=== PATIENT | male | born 1965 | race Caucasian/White ===

== ENCOUNTER 2020-10-08 11:39 | Inpatient (IN) | payer OTHER ==
[~2020-10-08] VITALS: Ht 182.9 cm; Wt 91.2 kg
[2020-10-08 15:37] LABS: BASOPHILS # (AUTO) 0.1 X10'3 (0-0.2); BASOPHILS % (AUTO) 0.5 % (0-1); EOSINOPHILS # (AUTO) 0.3 X10'3 (0-0.9); HEMATOCRIT 46.7 % (42.0-52.0); HEMOGLOBIN 16.1 g/dl (14.0-17.9); LYMPHOCYTES # (AUTO) 2.7 X10'3 (1.1-4.8); LYMPHOCYTES % (AUTO) 19.8 % (21-51); MEAN CORPUSCULAR HEMOGLOBIN 31.4 PG (27.0-31.0); MEAN CORPUSCULAR HGB CONC 34.4 g/dL (33.0-36.5); MEAN CORPUSCULAR VOLUME 91.3 FL (78-98); MONOCYTES # (AUTO) 0.8 X10'3 (0-0.9); MONOCYTES % (AUTO) 6.2 % (2-12); NEUTROPHILS # (AUTO) 9.8 X10'3 (1.8-7.7); NEUTROPHILS % (AUTO) 71.5 % (42-75); PLATELET COUNT 212 X10'3 (140-440); RED BLOOD COUNT 5.11 X10'6 (4.70-6.10); RED CELL DISTRIBUTION WIDTH 12.8 % (11.5-14.5); WHITE BLOOD COUNT 13.7 X10'3 (4.5-11.0)
[2020-10-08 15:46] LABS: ALANINE AMINOTRANSFERASE 55 U/L (12-78); ALBUMIN 3.8 G/DL (3.4-5.0); ALBUMIN/GLOBULIN RATIO 0.9 (1.1-1.5); ALKALINE PHOSPHATASE 70 IU/L (46-116); ANION GAP 9 (8-16); ASPARTATE AMINO TRANSFERASE 20 U/L (10-37); BILIRUBIN,TOTAL 0.6 MG/DL (0.1-1.0); BLOOD UREA NITROGEN 13 MG/DL (7-18); BUN/CREATININE RATIO 15.9 (5.4-32.0); C-REACTIVE PROTEIN 5.66 MG/DL (0.0-0.5); CALCIUM 9.4 MG/DL (8.5-10.1); CHLORIDE 95 MMOL/L (99-107); CREATININE 0.82 MG/DL (0.60-1.10); GLUCOSE 416 MG/DL (70-104); POTASSIUM 4.4 MMOL/L (3.5-5.1); SODIUM 131 MMOL/L (135-145); TOTAL CARBON DIOXIDE 26.9 MMOL/L (24-32); TOTAL PROTEIN 7.9 G/DL (6.4-8.2); eGFR > 90 ML/MIN
[2020-10-08] MEDS ORDERED: levoFLOXACIN-Levaquin 250mg/D5 50 ML IV ONE (16:15)
[2020-10-08] MEDS ORDERED: clindamycin 600mg/D5W 50ml 50 ML IV ONE (16:15)
--- NOTE | 2020-10-08 16:20 | NUR ---
PT DEMANDING TO LEAVE THE HOSPITAL TO GO TO HIS CAR OR HE WILL NOT STAY. WE OFFERED PT A PHONE TO MAKE CALLS AND HE IS REFUSING. SCOT BOSWELL IS TALKING WITH PT ALONG WITH AB ROBINS. PT IS REFUSING TO STAY IF HE CAN NOT GO TO HIS CAR.
--- NOTE | 2020-10-08 16:22 | NUR ---
PT TO BE ESCORTED BY SECURITY TO HIS CAR TO HELP LOCK IT UP. PT REPORTS THAT HE HAS "POT AND A PIPE" THAT NEEDS TO BE LOCKED UP IN HIS CAR. SECURITY ON STANDBY AT PT ROOM.
[2020-10-08] MEDS ORDERED: nicotine 21mg patch - 24 hr TD ONE ×2 (16:25→22:05)
--- NOTE | 2020-10-08 16:27 | NUR ---
PT OUT OF THE ED IN A WHEELCHAIR ESCORTED BY SECURITY TO LOCK UP HIS CAR.
[2020-10-08] MEDS ORDERED: normal saline 1000ML IV soln IVB ONE (16:35)
[2020-10-08] MEDS ORDERED: HYDROcodone/acetaminophen 5mg/325mg tablet PO ONE (18:50)
[2020-10-08] MEDS ORDERED: HUM10VIA (19:03)
[2020-10-08] MEDS ORDERED: GADOTERATE MEGLUMINE 7.5 MMOL/15 ML VIAL IV ONE (19:06)
[2020-10-08] MEDS ORDERED: acetaminophen 325mg tablet PO PRN ×2 (20:05)
[2020-10-08] MEDS ORDERED: HYDROcodone/acetaminophen 5mg/325mg tablet PO PRN (20:05)
[2020-10-08] MEDS ORDERED: dextrose ORAL solution 15 GM/59 ML bottle PO PRN ×2 (20:05)
[2020-10-08] MEDS ORDERED: dextrose 50%-water 50ml dispensing syringe IV PRN ×2 (20:05)
[2020-10-08] MEDS ORDERED: magnesium 2GM in 50ml NS 50 ML IV PRN (20:05)
[2020-10-08] MEDS ORDERED: morphine 2 MG/ML inj. syringe IV PRN (20:05)
[2020-10-08] MEDS ORDERED: mag hydrox/Alum hydrox/simeth 30ml oral suspension PO PRN (20:05)
[2020-10-08] MEDS ORDERED: potassium Cl 20 mEq SR tablet PO PRN ×2 (20:05)
[2020-10-08] MEDS ORDERED: vancomycin/NS 1 GM ADD-VANTAGE 250 ML IV ONE (20:05)
[2020-10-08] MEDS ORDERED: ondansetron/PF 4mg/2ml inj IV PRN (20:05)
[2020-10-08] MEDS ORDERED: potassium Cl 40MEQ/1/2NS 520ml 520 ML IV PRN ×2 (20:05)
[2020-10-08] MEDS ORDERED: magnesium hydroxide 30ml (MOM) UD suspension PO PRN (20:05)
[2020-10-08] MEDS ORDERED: MESSAGE TO PHARMACY PO ONE (20:05)
[2020-10-08] MEDS ORDERED: magnesium 4gm in 100ml NS 100 ML IV PRN (20:05)
[2020-10-08] MEDS ORDERED: glucagon, human recombinant 1mg kit SUBCUT PRN (20:05)
[2020-10-08 21:15] LABS: HEMOGLOBIN A1C 10.7 % (4.5-6.2)
--- NOTE | 2020-10-08 21:25 | NUR ---
I have received report from Marry LEE and had the opportunity to ask questions and assume patient care.
[2020-10-08 22:00] VITALS: BP 138/87
[2020-10-08] MEDS ORDERED: LORazepam 2 mg/ml vial IV PRN (22:05)
[2020-10-08] MEDS ORDERED: haloperidol lactate 5mg/ml inj IM PRN (22:05)
[2020-10-08] MEDS ORDERED: haloperidol 5mg tablet PO PRN (22:05)
[2020-10-08] MEDS: normal saline 1000ml 1,000 ML IV SCH (22:10)
[2020-10-08] MEDS: insulin glargine (Lantus) pen - multi-dose SQ SCH (22:15)
[2020-10-08] MEDS: insulin Lispro (HumaLOG) vial - multi-dose SQ SCH (22:49)
[2020-10-08] MEDS: HYDROcodone/acetaminophen 10/325mg tab PO PRN (22:56)
[2020-10-09] VITALS: BP 106/69
[2020-10-09] MEDS: normal saline 1000ml 1,000 ML IV SCH ×2 (02:52→17:07)
[2020-10-09] MEDS: vancomycin/NS 1 GM ADD-VANTAGE 250 ML IV SCH ×3 (04:36→19:46)
[2020-10-09] MEDS: HYDROcodone/acetaminophen 10/325mg tab PO PRN ×5 (04:37→23:28)
--- NOTE | 2020-10-09 06:33 | NUR ---
Problems reprioritized. Patient report given, questions answered & plan of care reviewed with Winifred LEE.
--- NOTE | 2020-10-09 06:37 | NUR ---
Patient in room [facility]. I have received report from Celia LEE and had the opportunity to ask questions and assume patient care.
[2020-10-09] MEDS: thiamine 100mg tablet PO SCH (07:55)
[2020-10-09] MEDS: folic acid 1mg tablet PO SCH (07:55)
[2020-10-09] MEDS: piperacillin/tazo 4.5gm/100ml 100 ML IV SCH ×2 (07:55→21:22)
[2020-10-09] MEDS: multivitamins, therapeutics tablet PO SCH (07:55)
[2020-10-09 08:00] VITALS: BP 121/78
[2020-10-09] MEDS: K and/or MAG REPLACEMENT MC SCH ×2 (08:00→19:42)
[2020-10-09 08:24] LABS: BASOPHILS % (AUTO) 0.3 % (0-1); EOSINOPHILS # (AUTO) 0.3 X10'3 (0-0.9); EOSINOPHILS % (AUTO) 3.6 % (0-6); HEMATOCRIT 41.4 % (42.0-52.0); LYMPHOCYTES # (AUTO) 2.5 X10'3 (1.1-4.8); LYMPHOCYTES % (AUTO) 33.5 % (21-51); MEAN CORPUSCULAR HEMOGLOBIN 31.2 PG (27.0-31.0); MEAN CORPUSCULAR VOLUME 91.8 FL (78-98); MEAN PLATELET VOLUME 9.1 FL (7.4-10.4); MONOCYTES # (AUTO) 0.5 X10'3 (0-0.9); MONOCYTES % (AUTO) 6.3 % (2-12); NEUTROPHILS # (AUTO) 4.3 X10'3 (1.8-7.7); NEUTROPHILS % (AUTO) 56.3 % (42-75); PLATELET COUNT 161 X10'3 (140-440); RED CELL DISTRIBUTION WIDTH 12.8 % (11.5-14.5); WHITE BLOOD COUNT 7.6 X10'3 (4.5-11.0)
[2020-10-09 08:53] LABS: ALANINE AMINOTRANSFERASE 43 U/L (12-78); ALBUMIN 2.9 G/DL (3.4-5.0); ALBUMIN/GLOBULIN RATIO 0.9 (1.1-1.5); ALKALINE PHOSPHATASE 48 IU/L (46-116); AMYLASE 28 U/L (25-115); ANION GAP 7 (8-16); ASPARTATE AMINO TRANSFERASE 19 U/L (10-37); BILIRUBIN,TOTAL 0.6 MG/DL (0.1-1.0); BLOOD UREA NITROGEN 11 MG/DL (7-18); BUN/CREATININE RATIO 17.7 (5.4-32.0); CALCIUM 8.3 MG/DL (8.5-10.1); CHLORIDE 101 MMOL/L (99-107); CREATININE 0.62 MG/DL (0.60-1.10); GLUCOSE 258 MG/DL (70-104); LIPASE 65 U/L (73-393); MAGNESIUM 1.9 MG/DL (1.5-2.4); PHOSPHORUS 2.5 MG/DL (2.3-4.5); POTASSIUM 4.1 MMOL/L (3.5-5.1); SODIUM 133 MMOL/L (135-145); TOTAL CARBON DIOXIDE 25.4 MMOL/L (24-32); TOTAL PROTEIN 6.1 G/DL (6.4-8.2); eGFR > 90 ML/MIN
[2020-10-09] MEDS: insulin Lispro (HumaLOG) vial - multi-dose SQ SCH ×3 (09:10→19:02)
--- NOTE | 2020-10-09 11:45 | NUR ---
PAGER ID: [phone] MESSAGE: re: [id number], Juvenal Friend Pt would like a Nicotine Patch daily please. A one time dose on shift supervisor melting was nonadmin'd. Thank you, Winifred Med/Surg [phone] Will continue to monitor.
[2020-10-09 12:00] VITALS: BP 145/79
[2020-10-09] MEDS: nicotine 21mg patch - 24 hr TD SCH (12:50)
--- NOTE | 2020-10-09 15:42 | NUR ---
DM Consult: Pt admit DX L foot first toe osteomyelitis and etoh receiving thiamin, folic, MVI w/ hx T2DM insulin dependent A1C 10.7 on admit per EMR. Pt seen by SABAS reports has no PCP, has been out of insulin for "long time", drinks 1-2 24oz beers nightly, and no longer has glucometer or test strips. SABAS contacted CM to notify of pt conversation. RD provided thorough written/verbal high protein/DM eds w/ RD contact information; reviewed types of carbs, carb sources, portion sizing, hydration, protein sources, appropriate snack options, and encouraged pt to contact dietitian's office if further questions. RD encouraged pt to establish w/ PCP to optimize GLU coverage and to check GLU routinely per MD recommendations. Pt does report is still hungry after meals and is agreeable to double eggs WB/double meats BIDLD; dietary notified. Addendum: 10/09/20 at [address] Amended: Links added.
--- NOTE | 2020-10-09 18:48 | NUR ---
Patient in room [facility]. I have received report from Winifred LEE and had the opportunity to ask questions and assume patient care.
[2020-10-09 19:00] VITALS: BP 128/81
[2020-10-09] MEDS ORDERED: VANCOMYCIN LEVEL IV ONE (19:30)
[2020-10-09] MEDS: lactobacillus rhamnosus 10,000 MMU CELLS/CAPSULE PO SCH (19:47)
[2020-10-09] MEDS: enoxaparin 40mg/0.4ml syringe SQ SCH (19:48)
--- NOTE | 2020-10-09 19:53 | NUR ---
lovenox information sheet given to pt
[2020-10-09] MEDS: insulin glargine (Lantus) pen - multi-dose SQ SCH (21:25)
[2020-10-10] VITALS: BP 126/89
[2020-10-10] MEDS: normal saline 1000ml 1,000 ML IV SCH ×3 (02:05→16:47)
[2020-10-10] MEDS: vancomycin/NS 1 GM ADD-VANTAGE 250 ML IV SCH (03:39)
[2020-10-10] MEDS: HYDROcodone/acetaminophen 10/325mg tab PO PRN ×4 (05:09→22:53)
--- NOTE | 2020-10-10 06:24 | NUR ---
Problems reprioritized. Patient report given, questions answered & plan of care reviewed with Tiffany LEE.
[2020-10-10 06:55] VITALS: BP 130/75
[2020-10-10 07:05] LABS: BASOPHILS % (AUTO) 0.3 % (0-1); EOSINOPHILS # (AUTO) 0.2 X10'3 (0-0.9); EOSINOPHILS % (AUTO) 3.2 % (0-6); HEMATOCRIT 42.7 % (42.0-52.0); HEMOGLOBIN 14.6 g/dl (14.0-17.9); LYMPHOCYTES # (AUTO) 1.9 X10'3 (1.1-4.8); LYMPHOCYTES % (AUTO) 24.7 % (21-51); MEAN CORPUSCULAR HEMOGLOBIN 31.2 PG (27.0-31.0); MEAN CORPUSCULAR HGB CONC 34.2 g/dL (33.0-36.5); MEAN CORPUSCULAR VOLUME 91.2 FL (78-98); MEAN PLATELET VOLUME 9.1 FL (7.4-10.4); MONOCYTES # (AUTO) 0.5 X10'3 (0-0.9); NEUTROPHILS % (AUTO) 65.8 % (42-75); PLATELET COUNT 171 X10'3 (140-440); RED BLOOD COUNT 4.68 X10'6 (4.70-6.10); RED CELL DISTRIBUTION WIDTH 12.7 % (11.5-14.5); WHITE BLOOD COUNT 7.6 X10'3 (4.5-11.0)
[2020-10-10 07:25] LABS: ALANINE AMINOTRANSFERASE 40 U/L (12-78); ALBUMIN 2.8 G/DL (3.4-5.0); ALBUMIN/GLOBULIN RATIO 0.8 (1.1-1.5); ALKALINE PHOSPHATASE 47 IU/L (46-116); AMYLASE 39 U/L (25-115); ANION GAP 8 (8-16); ASPARTATE AMINO TRANSFERASE 21 U/L (10-37); BILIRUBIN,TOTAL 0.5 MG/DL (0.1-1.0); BLOOD UREA NITROGEN 9 MG/DL (7-18); BUN/CREATININE RATIO 13.8 (5.4-32.0); CALCIUM 8.5 MG/DL (8.5-10.1); CHLORIDE 103 MMOL/L (99-107); CREATININE 0.65 MG/DL (0.60-1.10); GLUCOSE 220 MG/DL (70-104); LIPASE 64 U/L (73-393); MAGNESIUM 1.9 MG/DL (1.5-2.4); PHOSPHORUS 2.6 MG/DL (2.3-4.5); POTASSIUM 4.3 MMOL/L (3.5-5.1); SODIUM 135 MMOL/L (135-145); TOTAL CARBON DIOXIDE 24.1 MMOL/L (24-32); TOTAL PROTEIN 6.3 G/DL (6.4-8.2); eGFR > 90 ML/MIN
[2020-10-10] MEDS: K and/or MAG REPLACEMENT MC SCH ×2 (08:00→18:51)
[2020-10-10] MEDS ORDERED: nicotine 21mg patch - 24 hr TD SCH (08:00)
[2020-10-10] MEDS: lactobacillus rhamnosus 10,000 MMU CELLS/CAPSULE PO SCH ×2 (08:18→18:52)
[2020-10-10] MEDS: nicotine 21mg patch - 24 hr TD SCH (08:18)
[2020-10-10] MEDS: piperacillin/tazo 4.5gm/100ml 100 ML IV SCH ×3 (08:18→23:03)
[2020-10-10] MEDS: folic acid 1mg tablet PO SCH (08:18)
[2020-10-10] MEDS: multivitamins, therapeutics tablet PO SCH (08:18)
[2020-10-10] MEDS: thiamine 100mg tablet PO SCH (08:19)
[2020-10-10] MEDS: insulin Lispro (HumaLOG) vial - multi-dose SQ SCH ×3 (08:28→18:56)
--- NOTE | 2020-10-10 08:42 | NUR ---
PAGER ID: [phone] MESSAGE: Juvenal Marlowrealtoney [id number] FYI positive MRSA nasal swab. Must report to you. Thank you and good AM! [phone]
--- NOTE | 2020-10-10 10:30 | NUR ---
Called pharmacy for Vanco. Not in [facility]. Pharmacy states they will find Vanco and notify RN.
--- NOTE | 2020-10-10 10:42 | NUR ---
No return call from pharmacy. Called pharmacy for Vanco. Pharmacy states Chait[facility] "is sitting down here and somebody needs to come get it." Unable to leave floor as no one is covering pts. No aid on floor and aid is currently taking floor vitals. Requested for him to go down and grab Vanco.
--- NOTE | 2020-10-10 10:54 | NUR ---
Shannon delivered to floor by digital community manager
[2020-10-10] MEDS: VANCOmycin 1250MG/NS 250ml Bag 250 ML IV SCH ×2 (10:55→17:00)
[2020-10-10 11:18] VITALS: BP 126/85
--- NOTE | 2020-10-10 18:01 | NUR ---
Problems reprioritized. Patient report given, questions answered & plan of care reviewed with Celia LEE.
--- NOTE | 2020-10-10 18:29 | NUR ---
Patient in room [facility]. I have received report from Tiffany LEE and had the opportunity to ask questions and assume patient care.
[2020-10-10] MEDS: enoxaparin 40mg/0.4ml syringe SQ SCH (18:53)
[2020-10-10 19:00] VITALS: BP 116/81
[2020-10-10] MEDS ORDERED: emollient combination-Eucerin 250 ML LOTION TP SCH (21:00)
[2020-10-10] MEDS: insulin glargine (Lantus) pen - multi-dose SQ SCH (21:39)
[2020-10-10] MEDS: mineral oil/petrolatum, white cream 113gm jar TP SCH (21:42)
[2020-10-10] MEDS ORDERED: LORazepam 1 MG tablet PO PRN (22:05)
[2020-10-10] MEDS ORDERED: LORazepam 2 mg/ml vial IV PRN (22:05)
[2020-10-11] VITALS: BP 122/76
[2020-10-11] MEDS: VANCOmycin 1250MG/NS 250ml Bag 250 ML IV SCH ×2 (01:06→11:06)
[2020-10-11] MEDS: HYDROcodone/acetaminophen 10/325mg tab PO PRN ×3 (05:12→16:04)
--- NOTE | 2020-10-11 06:25 | NUR ---
Problems reprioritized. Patient report given, questions answered & plan of care reviewed with Harper LEE.
--- NOTE | 2020-10-11 06:32 | NUR ---
Patient in room [facility] 344. I have received report from ROSA Yang and had the opportunity to ask questions and assume patient care.
[2020-10-11 06:41] LABS: BASOPHILS % (AUTO) 0.4 % (0-1); EOSINOPHILS # (AUTO) 0.3 X10'3 (0-0.9); EOSINOPHILS % (AUTO) 3.2 % (0-6); HEMATOCRIT 42.6 % (42.0-52.0); HEMOGLOBIN 14.8 g/dl (14.0-17.9); LYMPHOCYTES % (AUTO) 24.8 % (21-51); MEAN CORPUSCULAR HEMOGLOBIN 31.5 PG (27.0-31.0); MEAN CORPUSCULAR HGB CONC 34.7 g/dL (33.0-36.5); MEAN CORPUSCULAR VOLUME 90.8 FL (78-98); MEAN PLATELET VOLUME 8.9 FL (7.4-10.4); MONOCYTES # (AUTO) 0.5 X10'3 (0-0.9); MONOCYTES % (AUTO) 6.8 % (2-12); NEUTROPHILS # (AUTO) 5.2 X10'3 (1.8-7.7); NEUTROPHILS % (AUTO) 64.8 % (42-75); PLATELET COUNT 176 X10'3 (140-440); RED BLOOD COUNT 4.69 X10'6 (4.70-6.10); RED CELL DISTRIBUTION WIDTH 12.5 % (11.5-14.5); WHITE BLOOD COUNT 8.1 X10'3 (4.5-11.0)
[2020-10-11 06:54] LABS: ALANINE AMINOTRANSFERASE 43 U/L (12-78); ALBUMIN 2.8 G/DL (3.4-5.0); ALBUMIN/GLOBULIN RATIO 0.8 (1.1-1.5); ALKALINE PHOSPHATASE 43 IU/L (46-116); AMYLASE 38 U/L (25-115); ANION GAP 8 (8-16); ASPARTATE AMINO TRANSFERASE 26 U/L (10-37); BILIRUBIN,TOTAL 0.4 MG/DL (0.1-1.0); BLOOD UREA NITROGEN 8 MG/DL (7-18); BUN/CREATININE RATIO 11.1 (5.4-32.0); CALCIUM 8.7 MG/DL (8.5-10.1); CHLORIDE 102 MMOL/L (99-107); CREATININE 0.72 MG/DL (0.60-1.10); GLUCOSE 199 MG/DL (70-104); LIPASE 50 U/L (73-393); SODIUM 133 MMOL/L (135-145); TOTAL CARBON DIOXIDE 23.5 MMOL/L (24-32); TOTAL PROTEIN 6.3 G/DL (6.4-8.2); eGFR > 90 ML/MIN
[2020-10-11 07:00] VITALS: BP 130/77
[2020-10-11] MEDS: nicotine 21mg patch - 24 hr TD SCH (07:12)
[2020-10-11] MEDS: thiamine 100mg tablet PO SCH (07:12)
[2020-10-11] MEDS: multivitamins, therapeutics tablet PO SCH (07:12)
[2020-10-11] MEDS: folic acid 1mg tablet PO SCH (07:12)
[2020-10-11] MEDS: lactobacillus rhamnosus 10,000 MMU CELLS/CAPSULE PO SCH ×2 (07:12→19:29)
[2020-10-11] MEDS: morphine 2 MG/ML inj. syringe IV PRN ×2 (07:13→19:18)
[2020-10-11] MEDS: piperacillin/tazo 4.5gm/100ml 100 ML IV SCH ×2 (07:45→16:03)
[2020-10-11] MEDS: normal saline 1000ml 1,000 ML IV SCH ×2 (07:46→19:28)
[2020-10-11] MEDS: K and/or MAG REPLACEMENT MC SCH ×2 (08:00→19:29)
[2020-10-11] MEDS: insulin Lispro (HumaLOG) vial - multi-dose SQ SCH ×4 (09:02→21:02)
[2020-10-11] MEDS ORDERED: VANCOMYCIN LEVEL IV ONE (09:30)
[2020-10-11 11:00] VITALS: BP 137/91
--- NOTE | 2020-10-11 18:06 | NUR ---
Problems reprioritized. Patient report given, questions answered & plan of care reviewed with ROSA Meza.
--- NOTE | 2020-10-11 19:06 | NUR ---
Patient in room [facility]. I have received report from Harper LEE and had the opportunity to ask questions and assume patient care.
[2020-10-11] MEDS: enoxaparin 40mg/0.4ml syringe SQ SCH (19:22)
[2020-10-11 20:00] VITALS: BP 134/88
[2020-10-11] MEDS: VANCOMYCIN 1,500MG inj. 1,500 MG in normal saline 500ml IV soln 300 ML IV SCH (20:51)
[2020-10-11] MEDS: insulin glargine (Lantus) pen - multi-dose SQ SCH (21:01)
[2020-10-11] MEDS: mineral oil/petrolatum, white cream 113gm jar TP SCH (21:04)
[2020-10-11 23:51] VITALS: BP 125/76
[2020-10-12] MEDS: piperacillin/tazo 4.5gm/100ml 100 ML IV SCH ×2 (00:05→08:09)
[2020-10-12] MEDS: morphine 2 MG/ML inj. syringe IV PRN ×2 (00:07→07:07)
[2020-10-12] MEDS: VANCOMYCIN 1,500MG inj. 1,500 MG in normal saline 500ml IV soln 300 ML IV SCH ×2 (03:57→11:00)
[2020-10-12] MEDS: normal saline 1000ml 1,000 ML IV SCH (04:05)
--- NOTE | 2020-10-12 06:21 | NUR ---
Problems reprioritized. Patient report given, questions answered & plan of care reviewed with Harper LEE.
[2020-10-12 07:00] VITALS: BP 123/81
[2020-10-12 07:26] LABS: BASOPHILS % (AUTO) 0.4 % (0-1); EOSINOPHILS # (AUTO) 0.3 X10'3 (0-0.9); EOSINOPHILS % (AUTO) 3.5 % (0-6); HEMATOCRIT 43.2 % (42.0-52.0); HEMOGLOBIN 14.9 g/dl (14.0-17.9); LYMPHOCYTES # (AUTO) 2.2 X10'3 (1.1-4.8); LYMPHOCYTES % (AUTO) 27.1 % (21-51); MEAN CORPUSCULAR HEMOGLOBIN 31.4 PG (27.0-31.0); MEAN CORPUSCULAR HGB CONC 34.4 g/dL (33.0-36.5); MEAN CORPUSCULAR VOLUME 91.3 FL (78-98); MEAN PLATELET VOLUME 8.8 FL (7.4-10.4); MONOCYTES # (AUTO) 0.5 X10'3 (0-0.9); MONOCYTES % (AUTO) 5.9 % (2-12); NEUTROPHILS # (AUTO) 5.2 X10'3 (1.8-7.7); NEUTROPHILS % (AUTO) 63.1 % (42-75); PLATELET COUNT 192 X10'3 (140-440); RED BLOOD COUNT 4.73 X10'6 (4.70-6.10); RED CELL DISTRIBUTION WIDTH 12.6 % (11.5-14.5); WHITE BLOOD COUNT 8.2 X10'3 (4.5-11.0)
[2020-10-12 07:54] LABS: ALANINE AMINOTRANSFERASE 48 U/L (12-78); ALBUMIN/GLOBULIN RATIO 0.9 (1.1-1.5); ALKALINE PHOSPHATASE 44 IU/L (46-116); AMYLASE 44 U/L (25-115); ANION GAP 7 (8-16); ASPARTATE AMINO TRANSFERASE 33 U/L (10-37); BILIRUBIN,TOTAL 0.5 MG/DL (0.1-1.0); BLOOD UREA NITROGEN 14 MG/DL (7-18); BUN/CREATININE RATIO 20.6 (5.4-32.0); CALCIUM 8.8 MG/DL (8.5-10.1); CHLORIDE 103 MMOL/L (99-107); CREATININE 0.68 MG/DL (0.60-1.10); GLUCOSE 189 MG/DL (70-104); LIPASE 66 U/L (73-393); PHOSPHORUS 3.1 MG/DL (2.3-4.5); POTASSIUM 3.9 MMOL/L (3.5-5.1); SODIUM 135 MMOL/L (135-145); TOTAL CARBON DIOXIDE 24.9 MMOL/L (24-32); TOTAL PROTEIN 6.5 G/DL (6.4-8.2); eGFR > 90 ML/MIN
[2020-10-12] MEDS: K and/or MAG REPLACEMENT MC SCH (08:00)
[2020-10-12] MEDS: multivitamins, therapeutics tablet PO SCH (08:09)
[2020-10-12] MEDS: thiamine 100mg tablet PO SCH (08:09)
[2020-10-12] MEDS: lactobacillus rhamnosus 10,000 MMU CELLS/CAPSULE PO SCH (08:09)
[2020-10-12] MEDS: folic acid 1mg tablet PO SCH (08:09)
[2020-10-12] MEDS: nicotine 21mg patch - 24 hr TD SCH (08:11)
[2020-10-12] MEDS: insulin Lispro (HumaLOG) vial - multi-dose SQ SCH (09:04)
--- NOTE | 2020-10-12 09:12 | NUR ---
Initial: Pt admit for osteomyelitis of left first toe. Per WOC notes wound is full thickness. Pt currently on a CHO controlled diet receiving double protein TID documented with 100% PO intake throughout LOS meeting estimated nutrient needs with adequate protein to support wound healing. Pt receiving routine Thiamine, Folic acid, and MVI for EtOH hx. LBM 10/10 with PRN bowel care available. No further nutrition intervention implemented at this time. Will continue to follow and make recommendations as appropriate. Recommendations: 1) Continue CHO controlled diet 2) Double eggs WB, double meat BIDLD 3) Continue routine Thiamine, Folic acid, and MVI for EtOH hx 4) Routine bowel care 5) Weekly scaled weights Addendum: 10/12/20 at [address] Amended: Links added.
[2020-10-12] MEDS ORDERED: LEVO500T89 PO (10:38)
[2020-10-12] MEDS ORDERED: METR500T PO (10:39)
[2020-10-12 12:00] VITALS: BP 132/79
[2020-10-12] MEDS: HYDROcodone/acetaminophen 10/325mg tab PO PRN (12:30)
[2020-10-12] MEDS ORDERED: VANCOMYCIN LEVEL IV ONE (18:30)
[2020-10-12] MEDS ORDERED: LORazepam 2 mg/ml vial IV PRN (22:05)
[2020-10-12] MEDS ORDERED: LORazepam 1 MG tablet PO PRN (22:05)
== END 2020-10-12 13:25 | disposition home or self-care (01) | DRG 638 ==
LOC: ER 11:40 → SUR 3N 20:05
PROVIDERS: ADMIT Family Medicine; ATTEND Family Medicine
DX: E11.69 Type 2 diabetes mellitus with other specified complication (principal); E87.1 Hypo-osmolality and hyponatremia; M86.8X7 Other osteomyelitis, ankle and foot; E11.621 Type 2 diabetes mellitus with foot ulcer; F17.210 Nicotine dependence, cigarettes, uncomplicated; F12.90 Cannabis use, unspecified, uncomplicated; E11.65 Type 2 diabetes mellitus with hyperglycemia; L97.529 Non-pressure chronic ulcer of other part of left foot with unspecified severity; Z79.4 Long term (current) use of insulin; Z82.49 Family history of ischemic heart disease and other diseases of the circulatory system; Z83.3 Family history of diabetes mellitus; Z59.0 Homelessness; Z88.8 Allergy status to other drugs, medicaments and biological substances; Z89.422 Acquired absence of other left toe(s); Z71.6 Tobacco abuse counseling; Z72.89 Other problems related to lifestyle
CPT/HCPCS: 36415; 73630; 73720; 80053; 80202; 82150; 82948; 83036; 83605; 83690; 83735; 84100; 85025; 85610; 85651; 86140; 87040; 87070; 87077; 87081; 87186; 96365; 96368; 97110; 97116; 97162; 97530; 99285; A9575; G0378; J1650; J1815; J1956; J2060; J2270; J2543; J3370; J3490; J7030; J7040